=== PATIENT | male | born 1950 | race Caucasian/White ===

== ENCOUNTER 2024-02-23 08:38 | Outpatient (AMB) | payer MEDICARE, SELFPAY ==
[2024-02-23 08:49] VITALS: BP 145/66; PULSE 48; BMI 19.9
--- NOTE | 2024-02-23 08:49 | A.OFFVIS_ITS ---
Vital Signs 3 02/23/24 08:49 Height 5 ft 10 in Weight 139 lb BMI 19.9 BP 145/66 H Blood Pressure Location Lt brachial Position Sitting Pulse 48 L Pulse Source Palpation Intake Visit Reasons: Neck Pain Allergies Belladonna Adverse Reaction (Mild, Uncoded 02/23/24 08:52) Agitated Medication List - Last Reconciled 02/23/24 by Stephanie Lujan aspirin 81 mg PO DAILY atorvastatin 80 mg PO DAILY bicalutamide 50 mg PO DAILY leuprolide (Eligard) 7.5 mg subcut Q4W HPI Comments Details: Ovidio is a very pleasant 73-year-old male who presents the office today, accompanied by his , for evaluation and management of his chronic neck pain. Patient reports he has been suffering with midline cervical neck pain for greater than 1 year. Described as a dull ache, constant, worse when he wakes up in the morning. Endorses stiffness and occasional feeling of locking of the neck. 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 He is awaiting appointment with hand specialist for evaluation. One month ago he was admitted to the hospital for gastric ulcer. Reports after that hospital stay he developed worsening pain in the neck but more laterally across the shoulders Pain is worse with moving the head. Improves with heat, ice and splinting with a rolled towel behind his head when sitting He has been taking Tylenol with minimal improvement. Unable to take nonsteroidal anti-inflammatory medications secondary to recent gastric ulcer MRI was performed last month, results were reviewed with patient and today. Results as per below Pain today is rated as a 5/10, constant, worse in the morning In terms of muscle damage condition is described as pinching, aching, pulling, tight Pain is negatively impacting patient's sleep, ability to perform activities of daily living, ability to function normally, mood and relationship with the people Denies implantable devices, pacemaker or defibrillator. Denies current use of anticoagulants Denies current use of nicotine, tobacco or illicit substances. Social alcohol use, approximately 1 beer per week [facility] Medical History (Updated 02/23/24 @ 09:37 by Lena Mullins, GEOPHYSICAL DRAFTER, PATIENT REPRESENTATIVE) GERD (gastroesophageal reflux disease) Adenocarcinoma of prostate Chronic kidney disease Neurogenic bladder Aortic valve stenosis Hyperlipidemia Small bowel obstruction Gastric ulcer Hypertension Surgical History (Updated 02/23/24 @ 09:37 by Lena Mullins, GEOPHYSICAL DRAFTER, PATIENT REPRESENTATIVE) Aortic valve replaced History of partial colectomy History of prostatectomy Review of Systems Const All systems reviewed & are unremarkable except as noted in HPI and below Physical Exam Vital Signs: Last Vital Signs Pulse 48 L 02/23/24 08:49 BP 145/66 H 02/23/24 08:49 BMI result Body Mass Index 19.9 General: awake, alert, oriented. Answers questions appropriately. Fully engaged in examination. Skin: warm, dry, intact HEENT: Normocephalic. Hearing intact. Cardiac: External chest normal in appearance. Respiratory: No cough, audible wheezing or stridor. Abdomen: without gross distension. MS: No obvious swelling or deformities. Able to transition from sit to stand unassisted. Ambulates with bilaterally normal heel strike and toe off Cervical Spine: Visible inspection without gross abnormality Moderate tenderness throughout bilateral upper and middle trapezius muscles with palpable trigger points Tender to palpation midline cervical vertebrae and cervical paraspinal muscles decreased cervical ROM in all planes Spurling compression test positive BUE strength 5/5 Neurological: Oriented to person, place, time and situation. Thought process intact. No gait abnormalities appreciated. Psychiatric: Appropriate mood and affect. Good judgment and insight. Results Reviewed Results Reviewed: 02/03/2024 MRI CS Assessment & Plan Assessment & Plan (1) Cervical spondylosis: Code(s): M47.812 - Spondylosis without myelopathy or radiculopathy, cervical region Category: Medical (2) Trapezius muscle strain: Code(s): S46.819A - Strain of other muscles, fascia and tendons at shoulder and upper arm level, unspecified arm, initial encounter Category: Medical Plan Ovidio is a very pleasant 73-year-old male who presented to the office today for evaluation management of his chronic neck pain History, physical exam and provocative testing consistent with cervical spondylosis and trapezius muscle strain Order placed for PT eval and treat Topical lidocaine, apply to most painful area twice daily as needed Discussed muscle relaxant use, patient's does not want him taking these medications. Therefore he declined. Patient will follow up after PT, if no improvement consider trigger point injections versus cervical MBB. All questions and concerns were answered, patient agrees with the plan. Follow up after physical therapy, sooner if needed Orders: Orders 2 PT Evaluation and Treatment Today M47.812 - Spondylosis without myelopathy or radiculopathy, cervical region, S46.819A - Strain of other muscles, fascia and tendons at shoulder and upper arm level, unspecified arm, initial encounter Medications: New 2 lidocaine 5% Apply to most painful area twice daily as needed 1 appl topical BID PRN 50 grams 0RF pain Coding Level of Care Code New Pt Level 4 (26622) Complex EM visit Add On G2211 Diagnoses Cervical spondylosis M47.812 Trapezius muscle strain S46.816T
== END 2024-02-23 09:28 | disposition home or self-care (01) ==
PROVIDERS: PCP Internal Medicine; Referring Provider Physician Assistant Medical; Visit Provider Registered Nurse Emergency
DX: M47.812 Spondylosis without myelopathy or radiculopathy, cervical region (principal); S46.819A Strain of other muscles, fascia and tendons at shoulder and upper arm level, unspecified arm, initial encounter
CPT/HCPCS: 99204; G2211

== ENCOUNTER → 2024-02-23 08:38 | Outpatient (BNVA) | payer MEDICARE, SELFPAY | PROVIDERS: PCP Internal Medicine; Referring Provider Physician Assistant Medical; Visit Provider Registered Nurse Emergency | DX: M47.812 Spondylosis without myelopathy or radiculopathy, cervical region (principal); S46.819A Strain of other muscles, fascia and tendons at shoulder and upper arm level, unspecified arm, initial encounter; X58.XXXA Exposure to other specified factors, initial encounter; Y93.9 Activity, unspecified; Y92.9 Unspecified place or not applicable; Y99.9 Unspecified external cause status | CPT/HCPCS: 99202 ==

== ENCOUNTER 2024-07-13 08:40 | Outpatient (AMB) | payer MEDICARE, SELFPAY ==
--- NOTE | 2024-07-13 08:47 | MHC.OFFVIS ---
Vital Signs 07/13/24 08:51 Height 5 ft 10 in Weight 147 lb BMI 21.1 BP 131/71 Blood Pressure Location Lt brachial Position Sitting Pulse 50 Pulse Source Pulse Oximeter Pulse Oximetry (%) 97 Oxygen Delivery Method Room Air Intake Visit Reasons: FU neck pain after PT Intake Note: Pain today 6/10 Personal Care Home Administrator Required: No Accompanied by: Spouse Allergies Belladonna Adverse Reaction (Mild, Uncoded 02/23/24 08:52) Agitated HPI Comments Details: Patient presents back to the office today, accompanied by his , for follow-up chronic neck pain Patient reports that he completed physical therapy. Endorses some relief of his pain during physical therapy sessions with the pain returned as soon as he got home Today complaining of tenderness left upper trapezius with tightness and decreased range of motion of his cervical spine Pain today is rated as a 6/10, constant. He has been taking Tylenol without improvement of his symptoms. Unable to take nonsteroidal anti-inflammatory medications secondary to gastric ulcer Intake note: Ovidio is a very pleasant 73-year-old male who presents the office today, accompanied by his , for evaluation and management of his chronic neck pain. Patient reports he has been suffering with midline cervical neck pain for greater than 1 year. Described as a dull ache, constant, worse when he wakes up in the morning. Endorses stiffness and occasional feeling of locking of the neck. 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 He is awaiting appointment with hand specialist for evaluation. One month ago he was admitted to the hospital for gastric ulcer. Reports after that hospital stay he developed worsening pain in the neck but more laterally across the shoulders Pain is worse with moving the head. Improves with heat, ice and splinting with a rolled towel behind his head when sitting He has been taking Tylenol with minimal improvement. Unable to take nonsteroidal anti-inflammatory medications secondary to recent gastric ulcer MRI was performed last month, results were reviewed with patient and today. Results as per below Pain today is rated as a 5/10, constant, worse in the morning In terms of muscle damage condition is described as pinching, aching, pulling, tight Pain is negatively impacting patient's sleep, ability to perform activities of daily living, ability to function normally, mood and relationship with the people Denies implantable devices, pacemaker or defibrillator. Denies current use of anticoagulants Denies current use of nicotine, tobacco or illicit substances. Social alcohol use, approximately 1 beer per week COUNTS INCLUDE 234 BEDS AT THE [facility] Medical History (Updated 02/23/24 @ 09:37 by Lena Mullins APRN, GINGER) GERD (gastroesophageal reflux disease) Adenocarcinoma of prostate Chronic kidney disease Neurogenic bladder Aortic valve stenosis Hyperlipidemia Small bowel obstruction Gastric ulcer Hypertension Surgical History (Updated 02/23/24 @ 09:37 by Lena Mullins APRN, INTENSIVE CARE ANAESTHETIST) Aortic valve replaced History of partial colectomy History of prostatectomy Review of Systems Const All systems reviewed & are unremarkable except as noted in HPI and below Physical Exam Vital Signs: Last Vital Signs Pulse 50 07/13/24 08:51 BP 131/71 07/13/24 08:51 Pulse Ox 97 07/13/24 08:51 Oxygen Delivery Method Room Air 07/13/24 08:51 BMI result Body Mass Index 21.1 General: awake, alert, oriented. Answers questions appropriately. Fully engaged in examination. Skin: warm, dry, intact HEENT: Normocephalic. Hearing intact. Cardiac: External chest normal in appearance. Respiratory: No cough, audible wheezing or stridor. Abdomen: without gross distension. MS: No obvious swelling or deformities. Cervical Spine: Visible inspection without gross abnormality Tenderness throughout bilateral upper and middle trapezius muscles with palpable trigger points, left greater than right Minimally tender to palpation midline cervical vertebrae and cervical paraspinal muscles decreased cervical ROM in all planes Spurling compression test positive BUE strength 5/5 Neurological: Oriented to person, place, time and situation. Thought process intact. No gait abnormalities appreciated. Psychiatric: Appropriate mood and affect. Good judgment and insight. Results Reviewed Results Reviewed: 02/03/2024 MRI CS Assessment & Plan Assessment & Plan (1) Cervical spondylosis: Code(s): M47.812 - Spondylosis without myelopathy or radiculopathy, cervical region Category: Medical (2) Trapezius muscle strain: Code(s): S46.819A - Strain of other muscles, fascia and tendons at shoulder and upper arm level, unspecified arm, initial encounter Category: Medical Plan Patient presented to the office today for follow-up chronic neck pain Patient has exhausted conservative therapy including PT, home exercise program, [id number] medications, topical medications all without improvement of his symptoms. He is unable to take nonsteroidal anti-inflammatory medications due to history of gastric ulcer. Again today offered muscle relaxant, patient declined. Will schedule for an office trigger point injections with Dr. Harding. If no improvement will plan for fluoroscopy guided diagnostic bilateral cervical C3-C4 C5 medial branch blocks with local anesthetic. All questions and concerns were answered, patient agrees with the plan. Follow up after trigger point injections, sooner if needed Coding Level of Care Code Est Pt Level 3 (74001) Complex EM visit Add On G2211 Diagnoses Cervical spondylosis M47.812 Trapezius muscle strain S46.819U
[2024-07-13 08:51] VITALS: BP 131/71; PULSE 50; O2SAT 97; BMI 21.1
== END 2024-07-13 09:16 | disposition home or self-care (01) ==
PROVIDERS: PCP Internal Medicine; Visit Provider Registered Nurse Emergency
DX: M47.812 Spondylosis without myelopathy or radiculopathy, cervical region (principal); S46.819A Strain of other muscles, fascia and tendons at shoulder and upper arm level, unspecified arm, initial encounter
CPT/HCPCS: 99213; G2211

== ENCOUNTER → 2024-07-13 08:40 | Outpatient (BNVA) | payer MEDICARE, SELFPAY | PROVIDERS: PCP Internal Medicine; Visit Provider Registered Nurse Emergency | DX: M47.812 Spondylosis without myelopathy or radiculopathy, cervical region (principal); S46.819D Strain of other muscles, fascia and tendons at shoulder and upper arm level, unspecified arm, subsequent encounter | CPT/HCPCS: 99212 ==

== ENCOUNTER 2024-07-20 08:12 | Outpatient (AMB) | payer MEDICARE, SELFPAY ==
--- NOTE | 2024-07-20 08:14 | A.OFFVIS_ITS ---
Vital Signs 3 07/20/24 08:20 Height 5 ft 10 in Weight 138 lb BMI 19.8 BP 151/64 H Blood Pressure Location Lt brachial Position Sitting Pulse 53 Pulse Source Pulse Oximeter Intake Visit Reasons: Trigger point inj/per lena porter from 07/17 Intake Note: Pain today 5/10 Pumping Supervisor Required: No Finisher Card Tender: Finisher Card Tender Present Accompanied by: Spouse Allergies Belladonna Adverse Reaction (Mild, Uncoded 02/23/24 08:52) Agitated HPI Comments Details: Ovidio is very pleasant 74 years old gentleman who presents in my office today with complains on pain in the lower neck pain in the upper neck and pain in the back of the head. He states that pain in the back of the head is most severe in the morning when he gets up from the bed. He applies warm compress to the back of the head and top of his neck and pain becomes better. He also complains on pain in the lower cervical area on the back with radiation into the bilateral trapezius muscles. She was examined by nurse practitioner and trapezius muscle strain was suspected. Today he is here to receive trigger point injection. See description of the injection as below. I also examined the MRI of the cervical spine report in the chart. Most likely the pain of this patient is coming from spondylosis of the cervical spine without myelopathy or radiculopathy since he does not report any pain radiation into the upper extremities. I offered the patient medial branch blocks for upper and or lower posterior cervical spine, however patient refused to go for this procedure. He wants to see how trigger point injection which was performed today we will affect his pains. [facility], [facility] Medical History (Updated 07/20/24 @ 08:38 by Dejon Harding MD) GERD (gastroesophageal reflux disease) Adenocarcinoma of prostate Chronic kidney disease Neurogenic bladder Aortic valve stenosis Hyperlipidemia Small bowel obstruction Gastric ulcer Hypertension Surgical History (Updated 02/23/24 @ 09:37 by Lena Mullins APRN, MACHINE BOOKKEEPER) Aortic valve replaced History of partial colectomy History of prostatectomy Review of Systems Const All systems reviewed & are unremarkable except as noted in HPI and below Physical Exam Vital Signs: Last Vital Signs Pulse 53 07/20/24 08:20 BP 151/64 H 07/20/24 08:20 BMI result Body Mass Index 19.8 General: awake, alert, oriented. Answers questions appropriately. Fully engaged in examination. Skin: warm, dry, intact HEENT: Normocephalic. Hearing intact. Cardiac: External chest normal in appearance. Respiratory: No cough, audible wheezing or stridor. Abdomen: without gross distension. MS: No obvious swelling or deformities. Cervical Spine: Visible inspection without gross abnormality Tenderness throughout bilateral upper and middle trapezius muscles with palpable trigger points, left greater than right Minimally tender to palpation midline cervical vertebrae and cervical paraspinal muscles decreased cervical ROM in all planes Spurling compression test positive BUE strength 5/5 Neurological: Oriented to person, place, time and situation. Thought process intact. No gait abnormalities appreciated. Psychiatric: Appropriate mood and affect. Good judgment and insight. Office Procedures Therapeutic Injection Therapeutic Injection 44297-Spnthuq Point Injection 1 or 2 sites All charges added?: Procedure code (CPT) selection complete Office Meds triamcinolone acetonide 40 mg/mL suspension for injection Performing Provider: Dejon Harding MD Performing Location[place] [facility] Administered by: Dejon Harding MD on 07/20/24 08:42 2 Dose Route Admin Location Dispensed Lot Number Expiration Date [facility] [employer] 40 mg Infiltration 1 mL [id number] 01/18/27 bupivacaine (PF) 0.5 % (5 mg/mL) injection solution Performing Provider: Dejon Harding MD Performing [place] [facility] Administered by: Dejon Harding MD on 07/20/24 08:42 2 Dose Route Admin Location Dispensed Lot Number Expiration Date [facility] [employer] 10 mL Infiltration 10 mL [id number] 11/19/24 6104-0176-70 [employer] Results Reviewed Results Reviewed: 02/03/2024 MRI CS Assessment & Plan Assessment & Plan (1) Trapezius muscle strain: Code(s): S46.819A - Strain of other muscles, fascia and tendons at shoulder and upper arm level, unspecified arm, initial encounter Category: Medical Plan: TRIGGER POINT INJECTION LEFT UPPER ME TRAPEZIUS MUSCLE. Informed consent was obtained. Risks and benefits explained. Patient suffers from stomach ulcer. Risks of exacerbation of stomach ulcer and need for continuous antacid medication administration were carefully explained to the patient. The patient was positioned sitting on examination table left trapezius muscle projection to the skin was prepped with ChloraPrep. Sterilely obtained mixture of bupivacaine 0.5% 10 mL and triamcinolone 1 mL 40 mg using 25 gauge 1/2 inch needle was injected into the body of trapezius muscle in fan-like fashion. After that needle was withdrawn and Band-Aid was applied. The patient tolerated procedure well. No immediate complications were observed. (2) Myofascial muscle pain: Code(s): M79.18 - Myalgia, other site Category: Medical Plan MBB C2-C3 C4 versus MBB C4-C5 C6 bilateral diagnostic with the a.m. to perform sprint PNS were explained to the patient. He does not want to schedule him for those injections yet. He wants to see how trigger point injection with steroids will affect his pain. He will give us a call and schedule an appointment with our nurse practitioner for the follow-up and possible treatment of his cervical pain with diagnostic injections and medial branch blocks with the into perform sprint PNS. Orders: Orders 2 AMB Trigger Point Injection Today M79.18 - Myalgia, other site, S46.819A - Strain of other muscles, fascia and tendons at shoulder and upper arm level, unspecified arm, initial encounter Patient Instructions: I here by testify that I spent 32 minutes in conversation with this patient as well as examination of his MRI report, planning his care and organizing this note. Coding Level of Care Code Est Pt Level 4 (51555) Diagnoses Trapezius muscle strain S46.819A Myofascial muscle pain M79.18 CPT Codes Therapeutic Injection - Ther Injection 1: 20503-Stavuoh Point Injection 1 or 2 sites ([id number])
[2024-07-20 08:20] VITALS: BP 151/64; PULSE 53; BMI 19.8
== END 2024-07-20 08:40 | disposition home or self-care (01) ==
PROVIDERS: PCP Internal Medicine; Visit Provider Anesthesiology
DX: S46.819A Strain of other muscles, fascia and tendons at shoulder and upper arm level, unspecified arm, initial encounter (principal); M79.18 Myalgia, other site
CPT/HCPCS: 20552; 99214

== ENCOUNTER → 2024-07-20 08:12 | Outpatient (BNVA) | payer MEDICARE, SELFPAY | PROVIDERS: PCP Internal Medicine; Visit Provider Anesthesiology | DX: S46.812A Strain of other muscles, fascia and tendons at shoulder and upper arm level, left arm, initial encounter (principal); M79.18 Myalgia, other site; X58.XXXA Exposure to other specified factors, initial encounter; Y93.9 Activity, unspecified; Y92.9 Unspecified place or not applicable; Y99.9 Unspecified external cause status | CPT/HCPCS: 20552; 99212; J0665; J3300 ==

== ENCOUNTER 2024-08-30 08:08 | Outpatient (AMB) | payer MEDICARE, SELFPAY ==
--- OUTSIDE RECORDS SUMMARY | 2024-08-30 08:13 | XMS_ITS | Clinical Summary ---
Author Organization 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 Active bicalutamide (CASODEX) 50 mg tablet Take 50 mg by mouth daily. Active calcium carbonate-vitam in D3 600 mg-5 mcg (200 unit) per tablet 1 TABLET DAILY 09/02/19 08 Active leuprolide (leuprolide acetate) 45 mg syringe Inject 1 Kit into the skin Every 6 Months. Active MULTIVITAMIN ORAL qd 09/02/19 08 Active Lactobacillus acidophilus (PROBIOTIC ORAL) PROBIOTIC PRODUCT OR Take by mouth. Active acetaminophen (Tylenol Extra Strength) 500 mg tablet two tablets q 4-6 hours prn headache Active ascorbic acid (VITAMIN C) 1,000 mg tablet 1 TABLET DAILY AT DINNER 09/02/19 08 Active atorvastatin (LIPITOR) 80 mg tablet TAKE ONE TABLET BY MOUTH EVERY DAY 90 tablet 1 08/15/19 25 Active atorvastatin (LIPITOR) 80 mg tablet TAKE ONE TABLET BY MOUTH EVERY DAY 02/23/20 24 025 Discontinued Active Problems Problem Noted Date Diagnosed Date Bradycardia 09/02/2023 CAD (coronary artery disease) 01/18/2023 Overview (06/23/2024): Last Assessment & Plan: The patient has a history of nonobstructive coronary artery disease. He continues on cardioprotective medical therapy with aspirin and atorvastatin. He has a baseline bradycardia and is not on a beta-emmie. He denies any chest pain or chest pain with exertion. He continues to play golf frequently and denies any exertional symptoms during these activities. Patient advised to seek emergency medical attention by calling 911 if they were to develop severe dyspnea, chest pain that did not resolve with rest or nitroglycerin, or if they were to faint. Atrial tachycardia 07/25/2020 Overview (06/23/2024): Postop, previously on amiodarone Last Assessment & Plan: The patient remains short of breath that is improved with reduction of his beta-emmie. His average heart rate was quite low on his Holter monitor. As such, we will eliminate his metoprolol completely as he is on very low-dose of 12.5 mg once a day. He will follow his symptoms along. If his symptoms fail to improve, will obtain a Holter monitor to evaluate for his heart rate. If he has any sensation of rapid heart rate possibly referable to recurrent atrial tachycardia will also investigate with monitoring. The patient understands and agrees with this plan. Nonrheumatic aortic valve stenosis 07/25/2020 Overview (06/23/2024): Severe aortic stenosis s/p #23 Magna Ease bioprosthetic valve in 03/2018 with pre-AVR cath reavealing nonobstructive CAD with LAD/D1 stenosis 50% without significant ischemia by pressure wire assessment and mid RCA 75% stenosis. Normally functioning on echocardiogram Last Assessment & Plan: Patient completed an echocardiogram August 2022 which showed bioprosthetic aortic valve well-seated and functioning normally. We will continue with periodic echocardiograms and routine surveillance of his valve. He is aware of antibiotic prophylaxis prior to dental procedures. Pure hypercholesterolemia 07/25/2020 Overview (06/23/2024): Last Assessment & Plan: Patient has a history of coronary artery disease as well as a history of hyperlipidemia. We will update a fasting lipid panel to reassess his lipid control and make any adjustments as necessary. His last LDL cholesterol was noted to be 68. His goal LDL is less than 70 given his history. We will continue his current dose of atorvastatin at 40 mg orally daily. Interstitial cystitis 05/13/2009 Overview (06/23/2024): Cystectomy 2009 - stoma Prostate cancer 09/02/2007 Overview (06/23/2024): 2005, william 7-8, status post radiation therapy which caused significant inflammation with chronic interstitial cystitis. Also, patient developed neurogenic bladder with suprapubic catheter. 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 Dr. Knight Immunizations Name Administration Dates Next Due H1N1 Inj Preservative Free 06/12/2009 Influenza trivalent, 0.5mL, preservative free (Fluarix; FluLaval; Fluzone) ages 6mo and older (Afluria) 3 years and older 03/31/2010,03/04/2009,03/26/2008 Tdap Tetanus diptheria acell ular pertussis (Boostrix; Adacel) 7yo and older 03/31/2010 Medical History Medical History Date Comments Prostate cancer ([facility]) 09/02/2007 DX:Pro state cancer ([facility]); COMMENT: 2005, william 7-8, status post radiation therapy which caused significant inflammation with chronic interstitial cystitis. Also, patient developed neurogenic bladder with suprapubic catheter. 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 Interstitial cystitis 05/13/2009 DX:Interst itial cystitis Historical Medical DX 05/13/2009 DX:Colosto my Family History Medical History Relation Name Comments Lung cancer Mother Heart attack Sister 1 Diabetes Sister 2 Hypertension Sister 3 Relation Name Status Comments Mother Sister 1 Sister 2 Sister 3 Social History Tobacco Use Types Packs/Day Years Used Date Smoking Tobacco: Former Cigarettes Q uit: 06/21/1989 Smokeless Tobacco: Never Alcohol Use Standard Drinks/Week Comments Yes 1 (1 standard drink = 0.6 oz pur e alcohol) Sex and Gender Information Value Date Recorded Sex Assigned at Not on file Legal Sex Male 9:23 AM EST Gender Identity Not on file Sexual Orientation Not on file Obstetrics History Last Filed Vital Signs Vital Sign Reading Time Taken Comments Blood Pressure 108/62 02/11/2024 7:48 AM EDT Pulse 41 02/11/2024 7:48 AM EDT Temperature - - Respiratory Rate - - Oxygen Saturation - - Inhaled Oxygen Concentration - - Weight 64.4 kg (142 lb) 02/11/2024 7:48 AM EDT Height 177.8 cm (5' 10 ) 02/11/2024 7:48 AM EDT Body Mass Index 20.37 02/11/2024 7:48 AM EDT Plan of Treatment Upcoming Encounters Date Type Department Care Team (Late st Contact Info) Description 09/08/2024 2:30 PM EDT Office Visit [facility] [address] [facility] [address] [place] [address] Chadd Freeman MD [address] [place] [address] Health Maintenance Due Date Last Done Comments COVID-19 Vaccine (#1) 1955 Pneumococcal Vaccine: 50+ Years (1 of 2 - PCV) 1969 Zoster Vaccines (1 of 2) 1969 DTaP,Tdap,and Td Vaccines (2 - Td or Tdap) 03/31/2020 03/31/2010 Abdominal Aortic Aneurysm (AAA) Screen 05/30/2022 Cholesterol Screening (Lipid Panel) 05/30/2022 09/06/2007 Colorectal Cancer Screening: Colonoscopy 05/30/2022 Depression Screening 05/30/2022 Falls Risk Assessment 05/30/2022 Hepatitis C Screening 05/30/2022 Medicare Annual Wellness Visit 05/30/2022 Social Influencers of Health Screening 05/30/2022 Hypertension/CHF/CAD Annual BMP Blood Test 07/20/2023 03/25/2010 Influenza Vaccine (#1) 2024 0, 06/12/2009, 03/04/2009, Additional history exists RSV Immunization Patients 60+ Years Old (1 - 1-dose 75+ series) 2025 HIB Vaccines Aged Out No longer eligi ble based on patient's age to complete this topic HPV Vaccines Aged Out No longer eligi ble based on patient's age to complete this topic Hepatitis A Vaccines Aged Out No long er eligible based on patient's age to complete this topic Hepatitis B Vaccines Aged Out No long er eligible based on patient's age to complete this topic IPV Vaccines Aged Out No longer eligi ble based on patient's age to complete this topic MMR Vaccines Aged Out No longer eligi ble based on patient's age to complete this topic Meningococcal ACWY Vaccine Aged Out N o longer eligible based on patient's age to complete this topic Meningococcal B Vacine Aged Out No lo nger eligible based on patient's age to complete this topic RSV Immunization Patients Under 20 months Aged Out No longer eligible based on patient's age to complete this topic Varicella Vaccines Aged Out No longer eligible based on patient's age to complete this topic Procedures Procedure Name Priority Date/Time Associated Diagnosis Comments ANNUAL BMP BLOOD TEST Routine 03/25/2010 LIPID PANEL Routine 09/06/2007 from Last 3 Months or Most Recently Relevant to Health Maintenance Results * Annual BMP Blood Test (03/25/2010) Pathologist [facility] Annual BMP Blood Test abstracted Historical Provider HEALTH MAINTENANCE Final Result * (ABNORMAL) Lipid panel (09/06/2007) Pathologist [facility] LDL/HDL Ratio 5(A) 0 - 4 Triglycerides 116 0 - 150 mg/dL Cholesterol 179 0 - 200 mg/dL HDL 34(A) >=40 mg/dL LDL Cholesterol 122(A) 0 - 100 mg/dL Blood Venous blood specimen / Unknown Historical Provider LAB BLOOD ORDERABLES Kandy l Result from Last 3 Months or Most Recently Relevant to Health Maintenance Insurance [facility] MEDICARE ADVANTAGE Care Teams Caramel Candy Maker Relationship Specialty Start Date End Date Sarwat Bowen MD [address] [facility] [address] [place], [place] PCP - General Internal Medicine 04/14/22
[2024-08-30 08:14] VITALS: BP 131/61; PULSE 45; O2SAT 97; BMI 20.5
--- NOTE | 2024-08-30 08:14 | A.OFFVIS_ITS ---
Vital Signs 3 08/30/24 08:14 Height 5 ft 10 in Weight 143 lb BMI 20.5 BP 131/61 Blood Pressure Location Rt brachial Position Sitting Pulse 45 L Pulse Source Pulse Oximeter Pulse Oximetry (%) 97 Oxygen Delivery Method Room Air Intake Visit Reasons: Follow Up After Inj. Allergies Belladonna Adverse Reaction (Mild, Uncoded 08/30/24 08:18) Agitated Medication List - Last Reconciled 08/30/24 by Randa Jaimes LPN acetaminophen (Tylenol) 650 mg PO Q6H PRN aspirin 81 mg PO DAILY atorvastatin 80 mg PO DAILY bicalutamide 50 mg PO DAILY leuprolide (Eligard) 7.5 mg subcut Q4W lidocaine 5% 1 appl topical BID PRN HPI Comments Details: Patient presents back to the office today, accompanied by his , for follow- up chronic neck pain 6 weeks status post trapezius trigger point injections Pain today rated as 5/10. He reports 2 weeks of 100% pain relief after the trigger point injections. He then shoveled snow and pain returned. Today endorses midline upper cervical pain with radiation to the head. Headaches have since returned He would like to proceed with medial branch blocks as previously discussed Intake note: Ovidio is a very pleasant 73-year-old male who presents the office today, accompanied by his , for evaluation and management of his chronic neck pain. Patient reports he has been suffering with midline cervical neck pain for greater than 1 year. Described as a dull ache, constant, worse when he wakes up in the morning. Endorses stiffness and occasional feeling of locking of the neck. 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 He is awaiting appointment with hand specialist for evaluation. One month ago he was admitted to the hospital for gastric ulcer. Reports after that hospital stay he developed worsening pain in the neck but more laterally across the shoulders Pain is worse with moving the head. Improves with heat, ice and splinting with a rolled towel behind his head when sitting He has been taking Tylenol with minimal improvement. Unable to take nonsteroidal anti-inflammatory medications secondary to recent gastric ulcer MRI was performed last month, results were reviewed with patient and today. Results as per below Pain today is rated as a 5/10, constant, worse in the morning In terms of muscle damage condition is described as pinching, aching, pulling, tight Pain is negatively impacting patient's sleep, ability to perform activities of daily living, ability to function normally, mood and relationship with the people Denies implantable devices, pacemaker or defibrillator. Denies current use of anticoagulants Denies current use of nicotine, tobacco or illicit substances. 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 Answers questions appropriately. Fully engaged in examination. Skin: warm, dry, intact HEENT: Normocephalic. Hearing intact. Cardiac: External chest normal in appearance. Respiratory: No cough, audible wheezing or stridor. Abdomen: without gross distension. MS: No obvious swelling or deformities. Cervical Spine: Visible inspection without gross abnormality Minimally tender to palpation midline cervical vertebrae and cervical paraspinal muscles Spurling compression test positive BUE strength 5/5 Neurological: Oriented to person, place, time and situation. Thought process intact. No gait abnormalities appreciated. Psychiatric: Appropriate mood and affect. Good judgment and insight. Results Reviewed Results Reviewed: 02/03/2024 MRI CS Assessment & Plan Assessment & Plan (1) Cervical spondylosis: Code(s): M47.812 - Spondylosis without myelopathy or radiculopathy, cervical region Category: Medical (2) Trapezius muscle strain: Code(s): S46.819A - Strain of other muscles, fascia and tendons at shoulder and upper arm level, unspecified arm, initial encounter Category: Medical Plan Patient presented to the office today for follow-up chronic neck pain, 6 weeks status post trapezius trigger point injections Endorses improvement in pain, headaches, function mobility for 2 weeks after the injections. Pain then returned. Patient has exhausted conservative therapy including PT, home exercise program, [id number] medications, topical medications all without improvement of his symptoms. He is unable to take nonsteroidal anti-inflammatory medications due to history of gastric ulcer. He would like to proceed with fluoroscopy guided diagnostic bilateral cervical C2-C3 C4 medial branch blocks with local anesthetic. All questions and concerns were answered, patient agrees with the plan. Follow up after injections, sooner if needed Coding Level of Care Code Est Pt Level 3 (50266) Complex EM visit Add On G2211 Diagnoses Cervical spondylosis M47.812 Trapezius muscle strain S46.818W
== END 2024-08-30 09:05 | disposition home or self-care (01) ==
LOC: HO.PMC 08:08
PROVIDERS: PCP Internal Medicine; Visit Provider Registered Nurse Emergency
DX: M47.812 Spondylosis without myelopathy or radiculopathy, cervical region (principal); S46.819A Strain of other muscles, fascia and tendons at shoulder and upper arm level, unspecified arm, initial encounter
CPT/HCPCS: 99213; G2211

== ENCOUNTER → 2024-08-30 08:08 | Outpatient (BNVA) | payer MEDICARE, SELFPAY | PROVIDERS: PCP Internal Medicine; Visit Provider Registered Nurse Emergency | DX: M47.812 Spondylosis without myelopathy or radiculopathy, cervical region (principal); S46.819D Strain of other muscles, fascia and tendons at shoulder and upper arm level, unspecified arm, subsequent encounter | CPT/HCPCS: 99212 ==